=== PATIENT | female | born 1960 | race Caucasian/White ===

== ENCOUNTER 2018-01-25 11:24 | Emergency (ER) | payer MEDICAID ==
[~2018-01-25] VITALS: Ht 162.6 cm; Wt 65.6 kg
[~2018-01-25 11:24] MED LIST: IBUP-1986 PO
[2018-01-25 11:27] VITALS: BP 138/87
[2018-01-25] MEDS ORDERED: ketorolac trometh inj. 60 MG/2 ML VIAL IM ONE (11:45)
[2018-01-25] MEDS ORDERED: IBUP-1984 PO (13:40)
== END 2018-01-25 13:45 | disposition home or self-care (01) ==
LOC: ER 11:24
DX: M79.641 Pain in right hand (principal); M79.642 Pain in left hand; M25.531 Pain in right wrist; M25.532 Pain in left wrist; F17.200 Nicotine dependence, unspecified, uncomplicated
CPT/HCPCS: 73130; 96372; 99284; J1885

== ENCOUNTER 2018-06-28 07:09 | Emergency (ER) | payer MEDICAID ==
[~2018-06-28] VITALS: Ht 157.5 cm; Wt 67.3 kg
[2018-06-28 07:18] VITALS: BP 129/90
[2018-06-28] MEDS ORDERED: ketorolac trometh inj. 60 MG/2 ML VIAL IM ONE (07:40)
[2018-06-28] MEDS ORDERED: orphenadrine citrate 60mg/2ml inj. IM ONE (07:40)
[2018-06-28] MEDS ORDERED: HYDR-4353 PO (07:45)
[2018-06-28] MEDS ORDERED: IBUP-1986 PO (07:45)
[2018-06-28] MEDS ORDERED: ORPH100T2 PO (07:45)
[2018-06-28] MEDS ORDERED: TRAM50TA2 PO (08:04)
== END 2018-06-28 08:18 | disposition home or self-care (01) ==
LOC: ER 07:10
DX: M43.6 Torticollis (principal); E11.9 Type 2 diabetes mellitus without complications; F17.200 Nicotine dependence, unspecified, uncomplicated; Z79.899 Other long term (current) drug therapy
CPT/HCPCS: 72040; 96372; 99283; J1885; J2360

== ENCOUNTER 2018-09-22 10:13 | Emergency (ER) | payer MEDICAID ==
[~2018-09-22] VITALS: Ht 160 cm; Wt 64.6 kg
[~2018-09-22 10:13] MED LIST changes: +ORPH100T2 PO
[2018-09-22 10:42] VITALS: BP 114/74
[2018-09-22] MEDS ORDERED: ketorolac tromethamine 15mg/ml inj. IM ONE (11:40)
[2018-09-22] MEDS ORDERED: IBUP-2264 PO (11:48)
== END 2018-09-22 12:10 | disposition home or self-care (01) ==
LOC: ER 10:13
DX: M25.511 Pain in right shoulder (principal); E11.9 Type 2 diabetes mellitus without complications; M19.90 Unspecified osteoarthritis, unspecified site; Z79.899 Other long term (current) drug therapy
CPT/HCPCS: 96372; 99283; J1885

== ENCOUNTER 2019-06-15 10:11 | Emergency (ER) | payer MEDICAID ==
[~2019-06-15] VITALS: Ht 160 cm; Wt 66.4 kg
[~2019-06-15 10:11] MED LIST changes: +IBUP-2697 PO
[2019-06-15] MEDS ORDERED: ketorolac tromethamine 15mg/ml inj. IM ONE (11:35)
[2019-06-15] MEDS ORDERED: IBUP-1984 PO (11:41)
[2019-06-15 11:55] VITALS: BP 145/88
== END 2019-06-15 12:00 | disposition home or self-care (01) ==
LOC: ER 10:12
DX: M75.32 Calcific tendinitis of left shoulder (principal); E11.9 Type 2 diabetes mellitus without complications; J45.909 Unspecified asthma, uncomplicated; Z79.899 Other long term (current) drug therapy
CPT/HCPCS: 73030; 96372; 99283; J1885

== ENCOUNTER 2020-08-27 12:53 | Emergency (ER) | payer MEDICAID ==
[~2020-08-27] VITALS: Ht 160 cm; Wt 100.0 kg
[2020-08-27] MEDS ORDERED: ketorolac tromethamine 15mg/ml inj. IM ONE (13:35)
[2020-08-27] MEDS ORDERED: oxymetazoline 15 ML nasal spray NS ONE (14:35)
[2020-08-27 14:46] VITALS: BP 139/95
[2020-08-27] MEDS ORDERED: DOXY100C2 PO (14:55)
== END 2020-08-27 15:04 | disposition home or self-care (01) ==
LOC: ER 12:54
DX: R09.81 Nasal congestion (principal); R51.9 Headache, unspecified; E11.9 Type 2 diabetes mellitus without complications; M19.90 Unspecified osteoarthritis, unspecified site; Z79.2 Long term (current) use of antibiotics; Z79.899 Other long term (current) drug therapy
CPT/HCPCS: 70450; 96372; 99284; J1885

== ENCOUNTER 2021-12-25 01:18 | Inpatient (IN) | payer MEDICAID ==
[~2021-12-25] VITALS: Ht 160 cm; Wt 109.1 kg
[2021-12-25 02:10] LABS: BASOPHILS % (AUTO) 0.2 % (0-1); EOSINOPHILS % (AUTO) 0.1 % (0-6); HEMATOCRIT 33.2 % (35.0-45.0); HEMOGLOBIN 11.1 g/dl (12.0-16.0); LYMPHOCYTES # (AUTO) 0.6 X10'3 (1.1-4.8); MEAN CORPUSCULAR HEMOGLOBIN 29.4 PG (27.0-31.0); MEAN CORPUSCULAR HGB CONC 33.3 g/dL (33.0-36.5); MEAN CORPUSCULAR VOLUME 88.2 FL (78-98); MONOCYTES % (AUTO) 4.9 % (2-12); NEUTROPHILS # (AUTO) 19.1 X10'3 (1.8-7.7); NEUTROPHILS % (AUTO) 91.8 % (42-75); PLATELET COUNT 286 X10'3 (140-440); RED BLOOD COUNT 3.76 X10'6 (4.20-5.60); RED CELL DISTRIBUTION WIDTH 14.4 % (11.5-14.5); WHITE BLOOD COUNT 20.8 X10'3 (4.5-11.0)
[2021-12-25 02:18] LABS: ALANINE AMINOTRANSFERASE 51 U/L (12-78); ALBUMIN 2.9 G/DL (3.4-5.0); ALBUMIN/GLOBULIN RATIO 0.8 (1.1-1.5); ALKALINE PHOSPHATASE 72 IU/L (46-116); ANION GAP 15 (8-16); ASPARTATE AMINO TRANSFERASE 50 U/L (10-37); BILIRUBIN,TOTAL 0.6 MG/DL (0.1-1.0); BLOOD UREA NITROGEN 6 MG/DL (7-18); BUN/CREATININE RATIO 7.6 (6.6-38.0); CHLORIDE 86 MMOL/L (99-107); CREATININE 0.79 MG/DL (0.40-0.90); GLUCOSE 261 MG/DL (70-104); TOTAL CARBON DIOXIDE 18.5 MMOL/L (24-32); TOTAL PROTEIN 6.5 G/DL (6.4-8.2); eGFR 74 ML/MIN
[2021-12-25 02:20] LABS: POTASSIUM 3.8 MMOL/L (3.5-5.1)
[2021-12-25 02:21] LABS: SODIUM 119 MMOL/L (135-145)
--- NOTE | 2021-12-25 03:00 | NUR ---
INFORMED DR. STOCK OF LAB VALUES. NO NEW ORDERS GIVEN AT THIS TIME.
--- NOTE | 2021-12-25 03:15 | NUR ---
ASK DR. STOCK TO GO SEE PT. BUSY AT THIS TIME DURING CONSCIOUS SEDATION.
[2021-12-25 03:32] LABS: COLOR,URINE YELLOW (Yellow); GLUCOSE, URINE 500 mg/dl (Neg); KETONES,URINE 40 mg/dl (Neg); LEUKOCYTE ESTERASE ,URINE NEGATIVE (Neg); NITRITES, URINE NEGATIVE (Neg); OCCULT BLOOD,URINE LARGE (Neg); PROTEIN,URINE 100 mg/dl (Neg); UROBILINOGEN,URINE 0.2 E.U/dL (0.2-1.0)
[2021-12-25 03:40] LABS: CLARITY,URINE SLIGHTLY CLOUDY (Clear); UA COLLECTION TYPE CLN CATCH MIDSTREAM
[2021-12-25 03:41] LABS: BACTERIA,URINE FEW /HPF (Neg); RBC,URINE 0-2 /HPF (0-2); SQUAMOUS EPITHELIAL CELL,UR FEW /LPF (FEW); WBC,URINE 0-4 /HPF (0-4)
[2021-12-25] MEDS ORDERED: normal saline 1000ml 1,000 ML IV ONE (04:20)
[2021-12-25] MEDS ORDERED: normal saline 1000ML IV soln IVB ONE ×2 (04:25→06:20)
[2021-12-25] MEDS ORDERED: piperacillin/tazo 3.375gm/50ml 50 ML IV ONE (04:45)
[2021-12-25 05:02] LABS: C-REACTIVE PROTEIN 22.79 MG/DL (0.0-0.5)
[2021-12-25] MEDS ORDERED: aspirin 81mg tab.chew PO ONE (05:10)
[2021-12-25 05:40] LABS: CKMB RELATIVE INDEX 0.5 RATIO (0-2.5); CREATINE KINASE 957 U/L (26-192)
[2021-12-25] MEDS ORDERED: sodium bicarbonate (8.4%) 1 mEq/ml syringe IV ONE (06:20)
--- NOTE | 2021-12-25 06:50 | NUR ---
Pt requesting water. Spoke to ROBERTO Scott, states strict NPO at this time.
--- NOTE | 2021-12-25 07:30 | NUR ---
Pt continuing to request water/ice chips. Explained again that she is NPO per ER physician orders. No diet order placed by admitting MD at this time.
--- NOTE | 2021-12-25 09:00 | NUR ---
Pt yelling out to use restroom, explained that a pure wick was placed previously.
--- NOTE | 2021-12-25 10:13 | NUR ---
Pt moved into ER bed 3.
[2021-12-25 10:32] LABS: APTT 23 SECONDS (22-32); D-DIMER 2.57 MG/L FEU (0-0.50)
--- NOTE | 2021-12-25 10:40 | NUR ---
Pt removed pure wick; Yelling out to be boosted in bed. Went to bedside, pt originally stating she "can't" use her legs. Urged pt to attempt, at which point she was able to boost herself with assistance from myself and additional staff member.
[2021-12-25 11:03] LABS: URINE AMPHETAMINE SCREEN NEGATIVE (Neg); URINE BARBITUATE SCREEN NEGATIVE (Neg); URINE BENZODIAZEPINES SCREEN NEGATIVE (Neg); URINE CANNABINOID SCREEN NEGATIVE (Neg); URINE COCAINE SCREEN NEGATIVE (Neg); URINE METHADONE SCREEN NEGATIVE (Neg); URINE OPIATE SCREEN NEGATIVE (Neg); URINE PHENCYCLIDINE SCREEN NEGATIVE (Neg)
[2021-12-25] MEDS ORDERED: enoxaparin 40mg/0.4ml syringe SUBCUT ONE (11:30)
--- NOTE | 2021-12-25 11:30 | NUR ---
Pt incontinent of urine; stating that she is unable to use her legs or arms, or assist in rolling to help with bed change.
[2021-12-25] MEDS ORDERED: ibuprofen tablet 400 MG TABLET PO PRN (11:35)
[2021-12-25] MEDS ORDERED: MESSAGE TO PHARMACY PO ONE (11:40)
[2021-12-25] MEDS ORDERED: ondansetron/PF 4mg/2ml inj IV PRN (11:40)
[2021-12-25] MEDS ORDERED: insulin Lispro (HumaLOG) vial - multi-dose SQ SCH (11:40)
[2021-12-25] MEDS ORDERED: glucagon, human recombinant 1mg kit SUBCUT PRN (11:40)
[2021-12-25] MEDS ORDERED: POTASSIUM BICARB 20meq eff tab 20 MEQ TABLET.EFF PO PRN ×2 (11:40)
[2021-12-25] MEDS ORDERED: mag hydrox/Alum hydrox/simeth 30ml oral suspension PO PRN (11:40)
[2021-12-25] MEDS ORDERED: potassium CL 10mEq/100ml bag 100 ML IV PRN (11:40)
[2021-12-25] MEDS ORDERED: DEXTROSE 15 GM of carb/4 tabs (each vial/BOTTLE has 4 tablets) PO PRN ×2 (11:40)
[2021-12-25] MEDS ORDERED: magnesium 2GM in 50ml NS 50 ML IV PRN (11:40)
[2021-12-25] MEDS ORDERED: magnesium 4gm in 100ml NS 100 ML IV PRN (11:40)
[2021-12-25] MEDS ORDERED: acetaminophen 325mg tablet PO PRN (11:40)
[2021-12-25] MEDS ORDERED: magnesium Cl slow-release 64mg tablet PO PRN (11:40)
[2021-12-25] MEDS ORDERED: dextrose 50%-water 50ml dispensing syringe IV PRN ×2 (11:40)
[2021-12-25] MEDS ORDERED: magnesium hydroxide 30ml (MOM) UD suspension PO PRN (11:40)
--- NOTE | 2021-12-25 11:40 | NUR ---
Full bed change and bed bath performed; pt placed back on pure wick.
[2021-12-25 12:05] LABS: HEMOGLOBIN A1C 7.1 % (4.5-6.2)
--- NOTE | 2021-12-25 12:15 | NUR ---
Pt given lunch tray and sat up to eat. Feeding self without difficulty. Repetitively asking for liquids; explaining to pt that she is on fluid restriction.
[2021-12-25] MEDS: ibuprofen 200mg tablet PO PRN ×2 (13:01→21:28)
[2021-12-25 13:22] LABS: ALBUMIN 2.6 G/DL (3.4-5.0); ANION GAP 10 (8-16); BLOOD UREA NITROGEN 2 MG/DL (7-18); BUN/CREATININE RATIO 3.1 (6.6-38.0); CALCIUM 8.1 MG/DL (8.5-10.1); CHLORIDE 101 MMOL/L (99-107); CREATININE 0.65 MG/DL (0.40-0.90); GLUCOSE 220 MG/DL (70-104); MAGNESIUM 1.9 MG/DL (1.5-2.4); POTASSIUM 3.3 MMOL/L (3.5-5.1); SODIUM 135 MMOL/L (135-145); TOTAL CARBON DIOXIDE 23.9 MMOL/L (24-32); TRIGLYCERIDES 92 MG/DL (20-135); eGFR > 90 ML/MIN
--- NOTE | 2021-12-25 13:24 | NUR ---
Pt continually pulled off VS monitoring equipment.
--- NOTE | 2021-12-25 13:27 | NUR ---
Pt yelling out to staff that she needs to use the restroom. Once again explained to pt that she has a pure wick in place.
--- NOTE | 2021-12-25 13:50 | NUR ---
Observed pt standing at the sink, washing her hands without assistance. Independently returned to bed without need for staff assistance.
[2021-12-25] MEDS: CefTRIAXone/D5W-Rocephin 1gm 50 ML IV SCH (15:50)
[2021-12-25] MEDS ORDERED: SULF500T59 PO (17:35)
[2021-12-25] MEDS ORDERED: CLON0.3T PO (17:35)
[2021-12-25] MEDS ORDERED: TRAZ-251 PO (17:35)
[2021-12-25] MEDS ORDERED: BUPR-317 PO (17:35)
[2021-12-25] MEDS ORDERED: RISP2TAB85 PO (17:35)
[2021-12-25] MEDS ORDERED: METF-1203 PO (17:35)
[2021-12-25] MEDS ORDERED: BUPR300T86 PO (17:35)
[2021-12-25] MEDS ORDERED: SIMV-42 PO (17:35)
[2021-12-25] MEDS: acetaminophen 325mg tablet PO PRN (17:40)
[2021-12-25] MEDS ORDERED: iohexol 350MG/ML 100ml bottle IV ONE (18:14)
[2021-12-25 19:02] LABS: ALBUMIN 2.7 G/DL (3.4-5.0); ANION GAP 9 (8-16); BLOOD UREA NITROGEN 4 MG/DL (7-18); BUN/CREATININE RATIO 7.5 (6.6-38.0); CALCIUM 8.4 MG/DL (8.5-10.1); CHLORIDE 100 MMOL/L (99-107); CREATININE 0.53 MG/DL (0.40-0.90); GLUCOSE 129 MG/DL (70-104); POTASSIUM 3.3 MMOL/L (3.5-5.1); SODIUM 134 MMOL/L (135-145); TOTAL CARBON DIOXIDE 25.2 MMOL/L (24-32); eGFR > 90 ML/MIN
[2021-12-25] MEDS: docusate sod 100mg capsule PO SCH (20:00)
[2021-12-25] MEDS: K and/or MAG REPLACEMENT MC SCH (20:00)
[2021-12-25] MEDS: insulin glargine (Lantus) pen - multi-dose SQ SCH (23:01)
--- NOTE | 2021-12-26 00:10 | NUR ---
pt removes all VS equipment when nurse leaves room. pt taught not to and continually does so anyway
[2021-12-26] MEDS ORDERED: aspirin 81mg tab.chew PO ONE (05:50)
[2021-12-26 07:56] LABS: BASOPHILS # (AUTO) 0.1 X10'3 (0-0.2); BASOPHILS % (AUTO) 0.4 % (0-1); EOSINOPHILS % (AUTO) 0.4 % (0-6); HEMATOCRIT 31.2 % (35.0-45.0); HEMOGLOBIN 10.5 g/dl (12.0-16.0); LYMPHOCYTES # (AUTO) 1.4 X10'3 (1.1-4.8); LYMPHOCYTES % (AUTO) 11.2 % (21-51); MEAN CORPUSCULAR HEMOGLOBIN 29.4 PG (27.0-31.0); MEAN CORPUSCULAR HGB CONC 33.7 g/dL (33.0-36.5); MEAN CORPUSCULAR VOLUME 87.3 FL (78-98); MEAN PLATELET VOLUME 6.9 FL (7.4-10.4); MONOCYTES # (AUTO) 0.8 X10'3 (0-0.9); MONOCYTES % (AUTO) 6.8 % (2-12); NEUTROPHILS # (AUTO) 9.9 X10'3 (1.8-7.7); NEUTROPHILS % (AUTO) 81.2 % (42-75); PLATELET COUNT 331 X10'3 (140-440); RED BLOOD COUNT 3.57 X10'6 (4.20-5.60); RED CELL DISTRIBUTION WIDTH 14.7 % (11.5-14.5); WHITE BLOOD COUNT 12.2 X10'3 (4.5-11.0)
[2021-12-26] MEDS: docusate sod 100mg capsule PO SCH ×2 (08:00→21:08)
[2021-12-26] MEDS: K and/or MAG REPLACEMENT MC SCH ×2 (08:00→20:00)
[2021-12-26 08:30] LABS: ALANINE AMINOTRANSFERASE 72 U/L (12-78); ALBUMIN 2.5 G/DL (3.4-5.0); ALBUMIN/GLOBULIN RATIO 0.7 (1.1-1.5); ALKALINE PHOSPHATASE 73 IU/L (46-116); ANION GAP 8 (8-16); ASPARTATE AMINO TRANSFERASE 104 U/L (10-37); BILIRUBIN,TOTAL 0.2 MG/DL (0.1-1.0); BLOOD UREA NITROGEN 5 MG/DL (7-18); BUN/CREATININE RATIO 10.6 (6.6-38.0); CALCIUM 8.3 MG/DL (8.5-10.1); CHLORIDE 104 MMOL/L (99-107); CREATININE 0.47 MG/DL (0.40-0.90); GLUCOSE 139 MG/DL (70-104); MAGNESIUM 2.3 MG/DL (1.5-2.4); POTASSIUM 3.6 MMOL/L (3.5-5.1); SODIUM 140 MMOL/L (135-145); TOTAL CARBON DIOXIDE 28.3 MMOL/L (24-32); TOTAL PROTEIN 6.2 G/DL (6.4-8.2); eGFR > 90 ML/MIN
[2021-12-26 08:33] LABS: CREATINE KINASE 4782 U/L (26-192)
--- NOTE | 2021-12-26 10:05 | NUR ---
PT ABLE TO GET HER SELF OUT OF BED AND AMBULATE TO THE DOOR WAY TO ASK FOR IBUPROFEN. AND ALSO TO BE HELPED BACK TO BED
[2021-12-26] MEDS: ibuprofen 200mg tablet PO PRN ×2 (10:47→16:59)
[2021-12-26] MEDS: CefTRIAXone/D5W-Rocephin 1gm 50 ML IV SCH (11:01)
[2021-12-26] MEDS ORDERED: LORazepam 1 MG tablet PO ONE (11:05)
[2021-12-26] MEDS ORDERED: haloperidol lactate 5mg/ml inj IM ONE (11:05)
--- NOTE | 2021-12-26 11:09 | NUR ---
Note delta in EDM - 12/26/21 at 1313 by MITCHELL SPOKE WITH DR PARRIS FIELDS PTS CONTINUED BEHAVIOR. VERBAL ORDER TO REPEAT LITHIUM LEVEL, HALDOL 10MG IM , AND ATIVAN 1MH PO. IF LITHIUM LEVEL IS DECREASING PT POSSIBLE ABLE TO BE MEDICALY CLEARED FOR MH
[2021-12-26] MEDS: normal saline 1000ml 1,000 ML IV SCH (17:21)
[2021-12-26 19:07] LABS: ALBUMIN 2.7 G/DL (3.4-5.0); ANION GAP 9 (8-16); BLOOD UREA NITROGEN 7 MG/DL (7-18); BUN/CREATININE RATIO 10.6 (6.6-38.0); CALCIUM 8.7 MG/DL (8.5-10.1); CHLORIDE 100 MMOL/L (99-107); CREATININE 0.66 MG/DL (0.40-0.90); GLUCOSE 180 MG/DL (70-104); POTASSIUM 3.5 MMOL/L (3.5-5.1); SODIUM 135 MMOL/L (135-145); TOTAL CARBON DIOXIDE 26.1 MMOL/L (24-32); eGFR > 90 ML/MIN
[2021-12-26] MEDS: sulfaSALAZINE 500 MG tablet PO SCH (20:00)
[2021-12-26] MEDS ORDERED: cloNIDine 0.1 mg tablet PO SCH (21:00)
[2021-12-26] MEDS ORDERED: traZODone 50mg tablet PO SCH (21:00)
[2021-12-26] MEDS ORDERED: risperiDONE 2mg tablet PO SCH (21:00)
[2021-12-26] MEDS: insulin glargine (Lantus) pen - multi-dose SQ SCH (21:00)
[2021-12-26] MEDS: acetaminophen 325mg tablet PO PRN (21:19)
[2021-12-26 21:22] VITALS: BP 143/88
--- NOTE | 2021-12-26 21:32 | NUR ---
[facility] Spoke with PASCALE the pharmacist. May be available tomorrow.
[2021-12-27] MEDS: normal saline 1000ml 1,000 ML IV SCH (01:20)
[2021-12-27 02:50] VITALS: BP 124/73
[2021-12-27 06:00] VITALS: BP 151/97
[2021-12-27 06:32] LABS: ALBUMIN 2.6 G/DL (3.4-5.0); ANION GAP 9 (8-16); BLOOD UREA NITROGEN 8 MG/DL (7-18); BUN/CREATININE RATIO 15.1 (6.6-38.0); CALCIUM 8.3 MG/DL (8.5-10.1); CHLORIDE 107 MMOL/L (99-107); CREATININE 0.53 MG/DL (0.40-0.90); GLUCOSE 158 MG/DL (70-104); MAGNESIUM 2.4 MG/DL (1.5-2.4); POTASSIUM 3.8 MMOL/L (3.5-5.1); SODIUM 142 MMOL/L (135-145); TOTAL CARBON DIOXIDE 25.8 MMOL/L (24-32); eGFR > 90 ML/MIN
--- NOTE | 2021-12-27 06:37 | NUR ---
Problems reprioritized. Patient report given, questions answered & plan of care reviewed with YASIR Martin.
--- NOTE | 2021-12-27 07:21 | NUR ---
Patient in room PCU 3014. I have received report from YASIR GARCIA, and had the opportunity to ask questions and assume patient care.
[2021-12-27] MEDS ORDERED: buPROPion SR 150mg tablet PO SCH ×2 (08:00)
[2021-12-27] MEDS: K and/or MAG REPLACEMENT MC SCH (08:00)
[2021-12-27 08:51] LABS: BASOPHILS % (AUTO) 0.6 % (0-1); EOSINOPHILS # (AUTO) 0.2 X10'3 (0-0.9); EOSINOPHILS % (AUTO) 2.2 % (0-6); HEMATOCRIT 31.7 % (35.0-45.0); HEMOGLOBIN 10.7 g/dl (12.0-16.0); LYMPHOCYTES # (AUTO) 1.9 X10'3 (1.1-4.8); LYMPHOCYTES % (AUTO) 22.8 % (21-51); MEAN CORPUSCULAR HEMOGLOBIN 29.7 PG (27.0-31.0); MEAN CORPUSCULAR HGB CONC 33.8 g/dL (33.0-36.5); MEAN CORPUSCULAR VOLUME 87.8 FL (78-98); MEAN PLATELET VOLUME 7.3 FL (7.4-10.4); MONOCYTES # (AUTO) 0.6 X10'3 (0-0.9); MONOCYTES % (AUTO) 7.3 % (2-12); NEUTROPHILS # (AUTO) 5.5 X10'3 (1.8-7.7); NEUTROPHILS % (AUTO) 67.1 % (42-75); PLATELET COUNT 350 X10'3 (140-440); RED BLOOD COUNT 3.61 X10'6 (4.20-5.60); RED CELL DISTRIBUTION WIDTH 14.8 % (11.5-14.5); WHITE BLOOD COUNT 8.2 X10'3 (4.5-11.0)
[2021-12-27] MEDS: CefTRIAXone/D5W-Rocephin 1gm 50 ML IV SCH (09:48)
[2021-12-27] MEDS: sulfaSALAZINE 500 MG tablet PO SCH (09:55)
[2021-12-27] MEDS: docusate sod 100mg capsule PO SCH (09:55)
[2021-12-27] MEDS: ibuprofen 200mg tablet PO PRN (09:55)
--- NOTE | 2021-12-27 10:24 | NUR ---
Diabetes consult: Pt w/ hx of DM A1c 7.1 per EMR, fair control. Written DM w/ RD contact info placed in pt chart. Addendum: 12/27/21 at [address] Amended: Links added.
[2021-12-27 11:00] VITALS: BP 159/94
[2021-12-27 11:44] LABS: CREATINE KINASE 3688 U/L (26-192)
--- NOTE | 2021-12-27 11:48 | NUR ---
PAGE SENT PAGER ID: [phone] MESSAGE: [id number], THERESA MELENDEZ, CRITICAL LAB - TROPS 133. LAST TROPS, 12/25. THANK YOU, BEN [phone]
[2021-12-27] MEDS ORDERED: CEFD300C3 PO (12:11)
--- NOTE | 2021-12-27 13:34 | NUR ---
PT STABLE FOR DISCHARGE PER MD. DISCHARGE AND FOLLOW UP INSTRUCTIONS REVIEWED WITH PT, AND APPROPRIATE PAPERWORK SIGNED.BELONGINGS RETURNED TO PT. TELE BOX REMOVED. PIV REMOVED WITH TIP INTACT. PT TRANSFERRED TO [facility] BY [facility] WHERE SHE WILL BE PICKED UP IN A PRIVATE VEHICLE. PT WAS DISCHARGED TO HOME.
== END 2021-12-27 13:30 | disposition home health service (06) | DRG 720 ==
LOC: ER 01:18 → UNDOADMIN 06:36 → ED HOLD 06:36 → PCU 3S 12-26 20:00 → ED HOLD 12-26 20:00
PROVIDERS: ADMIT Internal Medicine; ATTEND Internal Medicine
PROC: B32T1ZZ Computerized Tomography (CT Scan) of Left Pulmonary Artery using Low Osmolar Contrast (ICD-10-PCS; principal; 2021-12-25)
PROC: B3201ZZ Computerized Tomography (CT Scan) of Thoracic Aorta using Low Osmolar Contrast (ICD-10-PCS; 2021-12-25)
PROC: B32S1ZZ Computerized Tomography (CT Scan) of Right Pulmonary Artery using Low Osmolar Contrast (ICD-10-PCS; 2021-12-25)
DX: A41.9 Sepsis, unspecified organism (principal); G93.41 Metabolic encephalopathy; I21.A1 Myocardial infarction type 2; E87.1 Hypo-osmolality and hyponatremia; M62.82 Rhabdomyolysis; D72.829 Elevated white blood cell count, unspecified; E11.9 Type 2 diabetes mellitus without complications; E66.9 Obesity, unspecified; Z20.822 Contact with and (suspected) exposure to COVID-19; E86.0 Dehydration; E78.5 Hyperlipidemia, unspecified; F17.210 Nicotine dependence, cigarettes, uncomplicated; M06.9 Rheumatoid arthritis, unspecified; F32.A Depression, unspecified; F41.9 Anxiety disorder, unspecified; M19.90 Unspecified osteoarthritis, unspecified site; R09.89 Other specified symptoms and signs involving the circulatory and respiratory systems; R79.89 Other specified abnormal findings of blood chemistry; Z83.3 Family history of diabetes mellitus; Z68.41 Body mass index [BMI] 40.0-44.9, adult
CPT/HCPCS: 36415; 71045; 71275; 80048; 80053; 80305; 81001; 82550; 82553; 82948; 83036; 83605; 83735; 83874; 84145; 84443; 84478; 84484; 85025; 85379; 85610; 85651; 85730; 86140; 87040; 87081; 87502; 87503; 87635; 93005; 93306; 93880; 96365; 99285; C9803; G0378; J0696; J1650; J1815; J2543; J3490; J7030; J7060; Q9967

== ENCOUNTER 2021-12-30 15:05 | Emergency (ER) | payer MEDICAID ==
[~2021-12-30] VITALS: Ht 160 cm; Wt 109.1 kg
[~2021-12-30 15:05] MED LIST changes: +BUPR-317 PO; +BUPR300T86 PO; +CEFD300C3 PO; +CLON0.3T PO; -IBUP-1986 PO; -IBUP-2697 PO; +METF-1203 PO; -ORPH100T2 PO; +RISP2TAB85 PO; +SIMV-42 PO; +SULF500T59 PO; +TRAZ-251 PO
[2021-12-30 15:55] VITALS: BP 144/90
[2021-12-30] MEDS ORDERED: naproxen 500mg tablet PO ONE (17:40)
== END 2021-12-30 19:29 | disposition home or self-care (01) ==
LOC: ER 15:05
DX: S90.121A Contusion of right lesser toe(s) without damage to nail, initial encounter (principal); M25.561 Pain in right knee; M79.661 Pain in right lower leg; R20.0 Anesthesia of skin; E78.00 Pure hypercholesterolemia, unspecified; E11.9 Type 2 diabetes mellitus without complications; M19.90 Unspecified osteoarthritis, unspecified site; M06.9 Rheumatoid arthritis, unspecified; Z98.891 History of uterine scar from previous surgery; Z79.899 Other long term (current) drug therapy; X58.XXXA Exposure to other specified factors, initial encounter; Y93.89 Activity, other specified; Y92.89 Other specified places as the place of occurrence of the external cause; Y99.8 Other external cause status
CPT/HCPCS: 73564; 93971; 99284